=== PATIENT | male | born 1960 | race Caucasian/White ===

== ENCOUNTER 2022-12-26 16:46 | Emergency (ER) | payer OTHER ==
[2022-12-26 17:14] LABS: #Basophils 0.1 thou/uL (0.0-0.2); #Eosinphils 0.2 thou/uL (0.0-0.7); #Lymphocytes 1.9 thou/uL (1.20-3.40); #Monocytes 0.7 thou/uL (0.11-0.59); #Neutrophils 2.6 thou/uL (1.40-6.50); %Basophils 2.1 % (0.0-1.0); %Eosinophils 4.3 % (0.0-10.0); %Lymphocytes 34.5 % (21.0-51.0); %Monocytes 12.9 % (0.0-10.0); %Neutrophils 46.3 % (42.0-75.0); Hemoglobin 15.5 g/dL (14.0-18.0); Mean Corpuscular HGB CONC 31.9 g/dL (32.0-36.0); Mean Corpuscular Hemoglobin 29.3 pg (27.0-31.0); Mean Corpuscular Volume 91.6 fl (78.0-98.0); Mean Platelet Volume 7.4 fL (7.4-10.4); Platelet Count 221 10x3/uL (130-400); RBC Distribution Width 11.6 % (11.5-14.5); Red Blood Cell (RBC) Count 5.31 mill/uL (4.70-6.10); White Blood Cell (WBC) Count 5.5 10x3/uL (4.8-10.8)
[2022-12-26] MEDS ORDERED: Metoclopramide HCl 10 MG/2 ML VIAL ONE (17:16)
[2022-12-26] MEDS ORDERED: Meclizine HCl 25 MG TAB ONE (17:17)
[2022-12-26 17:28] LABS: ALT (SGPT) 28 U/L (8-55); AST (SGOT) 25 U/L (5-34); Alkaline Phosphatase 53 U/L (40-110); Anion Gap 16 mmol/L (10-20); BUN (Urea Nitrogen) 15 mg/dL (8.4-25.7); Bilirubin, Total 0.4 mg/dL (0.2-1.2); Calc. Creatinine Clearance 0 mL/min (70-130); Calcium 8.7 mg/dL (7.8-10.44); Carbon Dioxide 18 mmol/L (23-31); Chloride 108 mmol/L (98-107); Estimated GFR 72; Globulin 2.7 g/dL (2.4-3.5); Glucose 145 mg/dL (80-115); Potassium 3.5 mmol/L (3.5-5.1); Protein, Total 6.7 g/dL (5.8-8.1); Sodium 138 mmol/L (136-145)
== END 2022-12-26 19:31 | disposition home or self-care (01) ==
LOC: BURERS 16:46
DX: E86.0 Dehydration (principal); R19.7 Diarrhea, unspecified; G52.2 Disorders of vagus nerve; I10 Essential (primary) hypertension
CPT/HCPCS: 70450; 80053; 83605; 84484; 85025; 93005; 96361; 96374; J2765